=== PATIENT | male | born 1960 ===

== ENCOUNTER → 2019-03-07 07:47 | Emergency (ER) | payer BC, OTHER ==
[~2019-03-07 07:47] MED LIST: HYDROcodone/ACETAMIN 5-325 MG* 1 TAB PO ONE
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
[2019-03-07 09:55] VITALS: BP 107/67
== END | disposition home or self-care (01) ==
LOC: ED 07:47
DX: S50.312A Abrasion of left elbow, initial encounter (principal); M25.512 Pain in left shoulder; M25.522 Pain in left elbow; M54.5 Low back pain; V20.4XXA Motorcycle driver injured in collision with pedestrian or animal in traffic accident, initial encounter; Y92.410 Unspecified street and highway as the place of occurrence of the external cause; M47.812 Spondylosis without myelopathy or radiculopathy, cervical region; N40.1 Benign prostatic hyperplasia with lower urinary tract symptoms
CPT/HCPCS: 70450; 71250; 72125; 74176; 99282